=== PATIENT | female | born 1950 | race Caucasian/White ===

== ENCOUNTER 2018-08-20 06:49 | Inpatient (IN) ==
[2018-08-20 08:22] LABS: BASO# 0.01 X1000 (0.0-0.2); BASO% 0.2 % (0.0-0.8); EOS# 0.02 X1000 (0.0-0.7); EOS% 0.3 % (0.0-10.0); HEMATOCRIT 36.6 % (37.0-47.0); HEMOGLOBIN 11.9 g/dL (12.0-16.0); IMM GRAN# 0.02 X1000 (0.0-0.04); IMM GRAN% 0.3 % (0.0-0.5); LYMPH# 0.83 X1000 (1.2-3.4); LYMPH% 13.9 % (20.5-51.1); MCH 31.3 PG (27-31); MCHC 32.5 g/dL (33-37); MCV 96.3 FL (81-99); MONO# 0.64 X1000 (0.11-0.59); MONO% 10.8 % (1.7-9.3); MPV 9.6 FL (7.4-10.4); NEUT# 4.43 X1000 (1.4-6.5); NEUT% 74.5 % (42.2-75.2); PLT 329 X1000 (130-400); RDW 13.8 % (11.5-14.5); WBC 5.95 X1000 (4.8-10.8)
[2018-08-20 08:34] LABS: URINE SOURCE CATH
[2018-08-20 08:42] LABS: BILIRUBIN URINE NEGATIVE (NEGATIVE); BLOOD URINE TRACE (NEGATIVE); COLOR YELLOW; GLUCOSE URINE NEGATIVE (NEGATIVE); KETONE URINE NEGATIVE (NEGATIVE); LEUKOCYTES URINE NEGATIVE (NEGATIVE); NITRITE URINE NEGATIVE (NEGATIVE); PH URINE 5.5; PROTEIN URINE NEGATIVE (NEGATIVE); SP GRAVITY URINE 1.013; TURBIDITY URINE CLEAR (CLEAR); UROBILINOGEN URINE NORMAL (NORMAL)
[2018-08-20 08:43] LABS: UR EPITHELIAL CELLS <10 /HPF (<10); URINE BACTERIA NEGATIVE /HPF; URINE RBC <10 /HPF (<10); URINE WBC <10 /HPF (<10)
[2018-08-20 08:44] LABS: ALB/GLOB RATIO 1.1; ALBUMIN 3.2 g/dL (3.5-5.0); CALCIUM 8.6 mg/dL (8.8-10.2); POTASSIUM 3.8 mmol/L (3.5-5.1); TOTAL BILIRUBIN 0.27 mg/dL (0.20-1.00)
--- NOTE | 2018-08-20 10:35 | Diag Imaging Result Doc PS360 ---
EXAM: CT HEAD W/O CONTRAST 08/20/2018 HISTORY: weakness, head injury TECHNIQUE: This exam was performed using automated exposure control, adjustment of mA or kV according to patient size, and/or use of iterative reconstruction technique. COMMENT: There is no evidence of mass effect, bleed, or abnormal extra-axial fluid collection. The visualized paranasal sinuses are clear. The calvarium is intact. IMPRESSION: No evidence of acute intracranial disease. Electronically signed by Brandyn Reis 08/20/2018 10:33 AM
[2018-08-20] MEDS ORDERED: SOLU-MEDROL IV ONE (11:05)
--- NOTE | 2018-08-20 12:48 | HISTORY AND PHYSICAL ---
CHIEF COMPLAINT: Inability to walk, acute flare of rheumatoid arthritis. HISTORY OF PRESENT ILLNESS: Ms. Dela Cruz is a 58-year-old woman who lives alone. She has a long history of severe crippling rheumatoid arthritis and is followed by Dr. Oliver. She was treated with nonsteroidal anti-inflammatory agents and methotrexate and low-dose prednisone. For the past 2 weeks or so, she has been barely able to get up out of bed; and her son has been having to come by twice a day to feed her breakfast and dinner. He is sometimes able to get her up to a bedside commode. Home health was added in the past 2 weeks to assist her in mobility at home, but they have found her living in her recliner with urine-soaked clothes and yesterday noted a Stage 2 decubitus in her presacral area. She admits that she has been unable to get out of bed and walk to the bathroom or to her bedroom for several weeks. She has had increased pain and stiffness in multiple joints, particularly the wrists, elbows and ankles. She has a history of Type 2 diabetes mellitus; but over the last 5-10 years has lost over 60 pounds, and her most recent hemoglobin A1C was 4.9%. Her metformin at that time was reduced to 500 mg once daily. PAST MEDICAL HISTORY: In addition to the above she has a history of hypertension, psoriasis and pernicious anemia. PAST SURGICAL HISTORY: Remarkable for knee arthroscopy in 1994 and a previous cholecystectomy. SOCIAL HISTORY: She is from her and lives alone. They have one son who is 25 years of age. She has never used tobacco or alcohol. FAMILY HISTORY: Her father had rheumatoid arthritis. HEALTH MAINTENANCE: She had pneumococcal vaccination in 2015 and flu shot this past April. HOME MEDICATIONS: 1. B12 2000 mcg daily. 2. [place] 10 1 three times a day p.r.n. joint pain. 3. Vitamin D3 2000 Units daily. 4. Ziac 2.5/6.25 1 daily for hypertension. 5. Diclofenac potassium 1 twice a day p.r.n. arthritis. 6. Famotidine 20 mg daily for GERD. 7. Folic acid 1 mg daily. 8. Lisinopril 10 mg twice a day for hypertension. 9. Metformin 500 mg daily after supper. 10.Methotrexate 8 tablets once weekly. 11.Prednisone 5 mg q a.m. 12.Sertraline 25 mg daily. 13.Temazepam 15 mg q bedtime p.r.n. sleep. 14.Tramadol/acetaminophen 2 tablets t.i.d. p.r.n. pain. REVIEW OF SYSTEMS: GENERAL: She complains of generalized weakness and fatigue. She is unsure why she cannot walk. It is not solely due to pain but her right leg seems weak and gives out on her. HEENT: Vision and hearing are adequate without recent changes. RESPIRATORY: No cough, sputum production or chronic lung disease. CARDIOVASCULAR: No angina or ischemic heart disease. No history of congestive heart failure or valvular heart disease. No palpitations, PND or edema. GI: Her appetite has been fair, and she denies abdominal pain. She has unusual diet of mainly snacks and chips. She denies constipation, diarrhea, melena or bright red blood per rectum. : No dysuria. She does have nocturia x 2-3. MUSCULOSKELETAL: See HPI. NEUROLOGIC: She recalls hitting her head pretty firmly with the car door 3 to 4 weeks ago but did not lose consciousness nor seek medical attention. Her difficulty walking seemed to begin shortly after this injury. She has used a cane for quite some time but recently got a 4-wheel walker but has been unable to use it much over the past several weeks. ENDOCRINE: Long-standing diabetes which is much improved after weight loss. She has no history of thyroid disease. She does have a history of diabetic neuropathy with some numbness in her lower legs. PHYSICAL EXAMINATION: VITAL SIGNS: Unremarkable. See nurses' notes. GENERAL APPEARANCE: An alert and talkative women who is age-appropriate and conversational. HEENT: PERRL. EOMI. Oropharynx is benign. NECK: Supple with no adenopathy, JVD, thyromegaly or bruits. LUNGS: Clear to auscultation anteriorly without crackles or wheezes. CARDIOVASCULAR: Regular rate and rhythm. No murmurs. ABDOMEN: Obese, soft and nontender. No guarding or rigidity. There is an old healed right upper quadrant excision, suprapubic section scar. MUSCULOSKELETAL: She has numerous chronic rheumatoid deformities of her wrists and MCPs. She has multiple rheumatoid nodules on the extensor surfaces of both forearms and elbows. There is a swan- neck deformity of the right ring finger. There is no significant erythema although there is synovial swelling palpable on the dorsal aspect of both wrists and her MCPs. NEUROLOGIC: Cranial nerve examination is unremarkable. I do not appreciate any focal weakness. Her sensory exam is remarkable only for minimal decreased sensation in her toes. SKIN: There is a 1 x 1 cm shallow ulcer over the coccyx area with mild erythema. There is some maceration of the presacral skin as well. DATE BASE: Sed rate is pending. ASSESSMENT: 1. Acute flare of rheumatoid arthritis with inability to walk. 2. New sacral Stage 2 decubitus ulcer, present on admission. 3. History of Type 2 diabetes mellitus. I suspect she will be controlled with diet alone now that she has lost weight. 4. Pernicious anemia, on oral replacement. 5. Recent head injury with subsequent reduced level of function. I do not see any clinical evidence for a subdural hematoma but will obtain a CT of the brain without contrast because of the temporal association. TREATMENT PLAN: Will admit for aggressive physical therapy and mobilization. Will try to return her functional status to her baseline. She will likely require subacute rehab. Will also request Dr. Oliver to consult as he has recommended changes in her rheumatologic medications. Apparently, he talked to her several months ago about Actemra infusions periodically. I have requested enterostomal therapist to evaluate her decubitus and recommend appropriate care. cc: Jude Segura MD
[2018-08-20] MEDS: VALIUM PO PRN (13:44)
[2018-08-20] MEDS: NORCO-10 PO PRN ×2 (13:45→21:34)
[2018-08-20] MEDS: ULTRACET 37.5MG/325MG PO SCH ×2 (13:45→21:37)
[2018-08-20] MEDS: HEPARIN SUBQ SCH ×2 (13:51→21:33)
[2018-08-20] MEDS ORDERED: SOLU-MEDROL ONE (13:56)
[2018-08-20] MEDS ORDERED: NORCO-10 PO SCH (14:00)
--- NOTE | 2018-08-20 14:15 | Diag Imaging Result Doc PS360 ---
EXAM: CHEST-2 VIEWS 08/20/2018 HISTORY: NHP TECHNIQUE: PA and lateral chest COMMENT: There is elevation of the right hemidiaphragm. There are no previous studies available for comparison. There is atelectasis versus fibrosis in both lung bases. IMPRESSION: Bibasilar atelectasis. Electronically signed by Brandyn Reis 08/20/2018 2:13 PM
[2018-08-20] MEDS: PEPCID PO SCH (21:33)
[2018-08-20] MEDS: PRINIVIL PO SCH (21:33)
[2018-08-20] MEDS: AMBIEN PO PRN ×2 (21:33→23:48)
[2018-08-21] MEDS: NORCO-10 PO PRN ×3 (05:30→17:46)
[2018-08-21] MEDS: HEPARIN SUBQ SCH ×2 (09:01→21:11)
[2018-08-21] MEDS: ULTRACET 37.5MG/325MG PO SCH ×3 (09:01→21:10)
[2018-08-21] MEDS: FOLIC ACID PO SCH (09:01)
[2018-08-21] MEDS: ZIAC 2.5/6.25 MG PO SCH (09:01)
[2018-08-21] MEDS: PRINIVIL PO SCH ×2 (09:01→21:10)
[2018-08-21] MEDS: VITAMIN D PO SCH (09:01)
[2018-08-21] MEDS ORDERED: SOLU-MEDROL IV ONE (10:53)
[2018-08-21] MEDS: NEURONTIN PO SCH ×2 (14:05→17:46)
[2018-08-21] MEDS: PEPCID PO SCH (21:11)
[2018-08-22] MEDS: AMBIEN PO PRN (00:17)
[2018-08-22] MEDS: NORCO-10 PO PRN ×3 (03:48→20:58)
[2018-08-22] MEDS ORDERED: METHOTREXATE PO SCH ×4 (08:00→12:00)
[2018-08-22] MEDS ORDERED: TUBERSOL ID ONE (08:58)
[2018-08-22] MEDS: FOLIC ACID PO SCH (09:00)
[2018-08-22] MEDS: ZIAC 2.5/6.25 MG PO SCH (09:00)
[2018-08-22] MEDS: PRINIVIL PO SCH ×2 (09:00→20:52)
[2018-08-22] MEDS: ULTRACET 37.5MG/325MG PO SCH ×3 (09:00→20:54)
[2018-08-22] MEDS: VITAMIN D PO SCH (09:00)
[2018-08-22] MEDS: NEURONTIN PO SCH ×3 (09:00→17:14)
[2018-08-22] MEDS: HEPARIN SUBQ SCH ×2 (09:00→20:53)
[2018-08-22] MEDS ORDERED: [UNRECOGNIZED DRUG - OTHER] ID ONE (09:00)
[2018-08-22] MEDS: PREDNISONE PO SCH (11:19)
[2018-08-22] MEDS: VALIUM PO PRN (14:05)
[2018-08-22] MEDS: PEPCID PO SCH (20:52)
[2018-08-23] MEDS: AMBIEN PO PRN (00:12)
[2018-08-23] MEDS: NORCO-10 PO PRN ×3 (03:45→21:53)
--- NOTE | 2018-08-23 08:05 | EKG Report ---
Test Performed on : 08/21/2018 08:36:47 AM Test Reason : diabetes, weakness Blood Pressure : / mmHG Vent. Rate : 074 BPM Atrial Rate : 074 BPM P-R Int : 146 ms QRS Dur : 080 ms QT Int : 352 ms P-R-T Axes : 054 050 056 degrees QTc Int : 390 ms Sinus rhythm. with occasional premature ventricular complexes. Otherwise normal ECG No previous ECGs available Unconfirmed Result
--- NOTE | 2018-08-23 09:15 | Diag Imaging Result Doc PS360 ---
SHOULDER-RIGHT - 08/23/2018 INDICATION: shoulder pain TECHNIQUE: Two views COMPARISON: None FINDINGS: There appears to be erosion of the glenoid process. Positioning of the humeral head is indeterminate on these two views. Acromioclavicular joint appears normally preserved. IMPRESSION: Apparent erosion of the glenoid process. Cannot exclude shoulder dislocation. Electronically signed by Jayden Baldwin 08/23/2018 9:13 AM
[2018-08-23] MEDS: FOLIC ACID PO SCH (09:19)
[2018-08-23] MEDS: NEURONTIN PO SCH ×3 (09:19→15:59)
[2018-08-23] MEDS: ULTRACET 37.5MG/325MG PO SCH ×4 (09:19→20:29)
[2018-08-23] MEDS: HEPARIN SUBQ SCH ×2 (09:19→20:28)
[2018-08-23] MEDS: PREDNISONE PO SCH (09:20)
[2018-08-23] MEDS: ZIAC 2.5/6.25 MG PO SCH (09:20)
[2018-08-23] MEDS: VITAMIN D PO SCH (09:20)
[2018-08-23] MEDS: PRINIVIL PO SCH ×2 (09:20→20:29)
[2018-08-23] MEDS: PEPCID PO SCH (20:28)
[2018-08-24] MEDS: NORCO-10 PO PRN (05:25)
[2018-08-24 07:11] VITALS: BP 116/48
--- NOTE | 2018-08-24 11:40 | DISCHARGE SUMMARY ---
ADMISSION DATE: 08/20/2018 DISCHARGE DATE: 08/24/2018 FINAL DIAGNOSIS: 1. Acute flare of rheumatoid arthritis. 2. Severe mobility deficit secondary to number 1. 3. Stage II decubitus ulcer present on admission due to number 2. 4. History of type 2 diabetes mellitus. 5. Essential hypertension. PRESENT ILLNESS: Mrs. Dela Cruz is a 68-year-old woman with severe longstanding and crippling rheumatoid arthritis, who lives alone. She is also followed by her music coordinator, Dr. Oliver. She was brought to the emergency room by ambulance on the morning of admission after at home had diffuse joint pains and stiffness and weakness. She was noted to have a stage II presacral decubitus and her recliner had become saturated with urine. Her son works during the day but had been coming by to feed her breakfast and supper daily. She had apparently not been able to get out of her recliner for 2 weeks. PHYSICAL EXAMINATION: General: Revealed an alert, talkative woman, who is age appropriate, and conversational and surprisingly cheerful. Lungs: Clear anteriorly without crackles or wheezes. Cardiovascular exam: Regular rate and rhythm, no murmurs. Abdomen: Minimally obese, soft, and nontender, without guarding or rigidity. Musculoskeletal: Numerous chronic rheumatoid deformities were noted of both wrists and the MCP joints of both hands. She has multiple rheumatoid nodules on the extensor surfaces of both forearms and elbows. I did not notice any significant erythema but she does have synovial swelling palpable on the dorsal aspect of both wrists and also in her MCP joints. Neurologic: Exam was unremarkable without focal weakness. Skin exam: There was a 1.5 x 1.5 cm shallow ulcer over the coccyx area with mild erythema, it is approximately 1 mm deep but not completely through the dermis. DATABASE: Her hemoglobin was 11.9, hematocrit 36.6, MCV was 96, white blood count and platelet count were normal. Chemistry profile: Normal electrolytes, BUN 27, creatinine 1.0, glucose 122, calcium 8.6, albumin 3.2. Urinalysis was unremarkable. Sedimentation rate was 22 mm for first hour. HOSPITAL COURSE: So, she was admitted for decubitus care and mobilization with physical therapy. Dr. Oliver was consulted and agreed that she had a significant flare and he recommended to continuing her methotrexate and boosting her steroid dose. After discharge, he plans to begin a new biologic agent interleukin-6 inhibitor, Actemra, I think is the name. With physical therapy, she progressed to easily sitting on the edge of bed and was able to transfer to a chair with assistance some. She complained of right shoulder pain and x-rays showed some erosions but no fracture. PPD and control were placed and both were negative at 48 hours. I expect she will require a QuantiFERON blood test prior to beginning her biologic therapy. She is discharged to rehab. She did seem occasionally tearful and I added Sertraline 25 mg q.a.m. to her medicine list. OTHER DISCHARGE MEDICATIONS: Ziac 2.5 1 daily, Vitamin D3 2000 units daily, diazepam 5 mg b.i.d. p.r.n. for severe anxiety, famotidine 20 mg at bedtime, folic acid 1 mg daily, gabapentin 100 mg 3 times a day, methotrexate 2.5 mg tablets 4 with breakfast and 4 with lunch once weekly on Thursday, prednisone 20 mg q.a.m., Ultracet tablets two 3 times a day p.r.n. for severe pain, diclofenac 100 mg b.i.d., [place] 10 1 every 6 hours as needed for severe pain, Ambien 5 mg at bedtime. cc: Jude Segura MD
[2018-08-26] MEDS ORDERED: METHOTREXATE PO SCH ×2 (09:00)
== END 2018-08-24 14:58 | DRG 547 ==
LOC: SUPCPDRO → ED 06:49 → 3N 10:07
PROVIDERS: ADMIT Internal Medicine; ATTEND Internal Medicine
CPT/HCPCS: 51702; 70450; 71020; 71046; 73030; 80053; 81001; 82948; 85025; 85651; 86580; 93005; 93010; 97110; 97162; 97530; 99285; A9270; J1644; J2920; J2930; J7506; J7512; J8610; XXXXX

== ENCOUNTER 2018-12-27 13:25 | Inpatient (IN) ==
--- NOTE | 2018-12-27 13:57 | EKG Report ---
Test Performed on : 12/27/2018 1:30:00 PM Test Reason : CP Blood Pressure : / mmHG Vent. Rate : 114 BPM Atrial Rate : 114 BPM P-R Int : 126 ms QRS Dur : 072 ms QT Int : 322 ms P-R-T Axes : 020 023 011 degrees QTc Int : 443 ms Sinus tachycardia. Otherwise normal ECG When compared with ECG of 21-AUG-2018 08:36, premature ventricular complexes. are no longer present Vent. rate has increased BY 40 BPM Nonspecific T wave abnormality now evident in Inferior leads Unconfirmed Result
[2018-12-27] MEDS ORDERED: NITROGLYCERIN TOP ONE (14:56)
--- NOTE | 2018-12-27 15:06 | PROVIDER DOCUMENTATION ---
HPI-General Adult - General Chief Complaint: Shortness of Breath Stated Complaint: chest pain since yesterday Time Seen by Provider: 12/27/18 14:42 Source: patient Allergies/Adverse Reactions: Patient Allergies Allergy/AdvReac Type Severity Reaction Status Date / Time Iodinated Contrast- Oral and Allergy ANAPHYLAXIS Verified 08/20/18 06:58 IV Dye [IV Dye] sulfamethoxazole AdvReac RASH Verified 01/26/15 19:45 [From Bactrim] trimethoprim [From Bactrim] AdvReac RASH Verified 01/26/15 19:45 Home Medications: Home Medication List Medication Instructions Recorded Confirmed Last Taken Type Bisoprolol/Hctz [Ziac 2.5/6.25 mg] 1 tab PO QAM 01/26/15 12/27/18 01/26/15 History Cholecalciferol (Vitamin D3) 1 tab PO DAILY 08/11/18 12/27/18 Unknown History [Vitamin D3] Cyanocobalamin (Vitamin B-12) 1 tab PO DAILY 08/11/18 12/27/18 Unknown History [Vitamin B12] Diazepam [Valium] 5 mg PO BID PRN 08/11/18 12/27/18 Unknown History Famotidine 20 mg PO QPM 08/11/18 12/27/18 Unknown History Folic Acid 1 tab PO DAILY 08/11/18 12/27/18 Unknown History Multivitamin [Multivitamins] 1 tab PO DAILY 08/11/18 12/27/18 Unknown History Tramadol HCl/Acetaminophen 2 tab PO TID 08/11/18 12/27/18 Unknown History [Tramadol-Acetaminophn 37.5-325] Gabapentin 100 mg PO TID 08/20/18 12/27/18 Unknown History Diclofenac Sodium [Diclofenac 1 tab PO BID #0 08/24/18 12/27/18 Unknown Rx Sodium ER] Hydrocodone/APAP 10 mg/325 mg 1 ea PO Q6H PRN PRN tab 08/24/18 12/27/18 Unknown Rx [[place]-10] Methotrexate 10 mg PO Oneal@0800 tab 08/24/18 12/27/18 Unknown Rx Methotrexate 10 mg PO Oneal@1200 tab 08/24/18 12/27/18 Unknown Rx Prednisone 20 mg PO DAILY tab 08/24/18 12/27/18 Unknown Rx Sertraline [Zoloft] 25 mg PO DAILY #30 tab 08/24/18 12/27/18 Unknown Rx Zolpidem [Ambien] 5 mg PO HS PRN PRN tab 08/24/18 12/27/18 Unknown Rx - History of Present Illness -Gen Adult Nature of Presenting Problems: Pt. is 68 yof that presents with c/o SOB and CP. Pt. reports symptoms began this morning and woke her from a sleep. Pt. reports no Hx of cardiac disease or respiratory problems. Pt. does have RA. Pt. reports several days worth of lower extremity edema that isn't usually there. Location of Pain/Injury: reports: chest. denies: none, head, face, mouth, neck, upper extremity, hand(s), abdomen, back, pelvis, genitalia, lower extremity, feet, upper body, lower body, generalized, other Pain Radiation: reports: no radiation. denies: arm(s), back, buttocks, chest, epigastric, feet, groin, jaw, flank (L), legs (lower), LLQ, LUQ, neck, periumbilical, flank (R), RLQ, RUQ, shoulder(s), scapula, scrotal, sternal notch, suprapubic, legs (upper), urethral, vaginal, other Quality of Pain: reports: pressure. denies: burning, indigestion, throbbing, tightness Severity: reports: moderate. denies: mild, severe Onset/Duration: reports: abrupt, this morning Timing: reports: still present, constant. denies: improving, changing over time, getting worse Context/Activities at Onset: reports: sleep. denies: none, light activity, moderate activity, vigorous activity, recent emotional stress, recent physical stress, recent trauma history, possible bad food, cold exposure, eating, out of country travel, rest, sexual activity, other Modifying Factors: improves with: nothing Associated Symptoms: reports: chest pain, shortness of breath. denies: denies symptoms, anxiety, arm pain, back/neck pain, constipation, cough, diaphoresis, diarrhea, dizziness, EENT symptoms, fatigue, fever/chills, genitourinary prob lems, headaches, heartburn, joint pain, loss of appetite, malaise, muscle aches, sinus congestion/drainage, nausea, rash, seizure, sensory/motor loss, pain with inspiration, swelling/mass in abdomen, syncope, vomiting, weakness, trouble walking, other Similar Symptoms Previously?: No Recently seen or treated by another doctor?: No Review of Systems - Adult - REVIEW OF SYSTEMS - ADULT Constitutional: reports: no symptoms reported Eyes: reports: no symptoms reported Ears, Nose, Mouth & Throat: reports: no symptoms reported Cardiovascular: reports: see HPI, chest pain. denies: irregular heart rate, palpitations, syncope Respiratory: reports: see HPI, shortness of breath. denies: chronic cough, pleurisy, wheezing Gastrointestinal: reports: no symptoms reported Genitourinary: reports: no symptoms reported Musculoskeletal: reports: no symptoms reported Integumentary: reports: no symptoms reported Neurological: reports: no symptoms reported Psychiatric: reports: no symptoms reported Past History - Adult - PAST MEDICAL HISTORY-ADULT Review of Records: reports: Old Records Reviewed, Nursing Assessment Review, Medications Reviewed, Social history reviewed & non-contributory. Major Childhood Illnesses: reports: denies history Cardiovascular: reports: HTN Musculoskeletal: reports: arthritis Endocrine/Immune: reports: anemia, Diabetes - IMMUNIZATION STATUS Childhood Immunizations: See Nurse Assessment Flu Vaccine: See Nurse Assessment - FAMILY HISTORY Family History: reviewed, not pertinent - SOCIAL HISTORY Smoking: non-smoker Physical Exam-General - PHYSICAL EXAM-ADULT Initial Vital Signs Reviewed: Yes - CONSTITUTIONAL General Appearance: alert, mild distress. negative: anxious, slow to respond, obtunded, combative - EYES Eyes: PERRL/EOMI, pink conjunctivae - HEAD, EARS, NOSE, MOUTH & THROAT HENMT: normocephalic/atraumatic, moist mucous membranes - NECK Neck: non-tender, full range of motion, supple, normal inspection - RESPIRATORY Respiratory: decreased breath sounds (Right lower). negative: rales, rhonchi, stridor - CARDIOVASCULAR Cardiovascular: regular rate, rhythm, tachycardia. negative: extra beats, friction rub, irregularly irregular - GASTROINTESTINAL (ABDOMEN) Abdominal Exam: normal bowel sounds, non tender, soft - LYMPHATIC Lymphatic: no adenopathy. negative: axilla node tender, cervical node tenderness - MUSCULOSKELETAL Back Exam: normal inspection. negative: muscle spasm, swelling, vertebral tenderness Extremity: pedal edema (1+ pitting). negative: deformity, erythema, inflammation Peripheral Pulses: radial (R): 2+, radial (L): 2+ - SKIN Integumentary: pallor. negative: blanching, erythema, tenderness - NEUROLOGIC Neurologic: grossly normal, no motor/sensory deficits - PSYCHIATRIC Psych/Mental Status: normal mood/affect, normal thought content, normal thought process, oriented x 3. negative: anxious, paranoid, tearful Progress - PLAN OF CARE/RESULTS Progress/Plan/Lab Results: Vital Signs - 8 hr 12/27/18 14:17 Temperature 98.9 F Pulse Rate 107 H Respiratory Rate 18 Blood Pressure 131/74 O2 Sat by Pulse Oximetry 97 Orders Category Date Time Status Saline Loc NOW Care 12/27/18 14:53 Active CHEST-PORTABLE [RAD] Stat Exams 12/27/18 14:55 Ordered CBC WITH ELECTRONIC DIFF [HEME] Stat Lab 12/27/18 14:53 Uncollected CK PROFILE [SP CHEM] Stat Lab 12/27/18 14:54 Uncollected COMPREHENSIVE METABOLIC PANEL [CHEM] Stat Lab 12/27/18 14:54 Uncollected PRO B-NATRIURETIC PEPTIDE Stat Lab 12/27/18 14:15 Received PROTIME WITH INR [COAG] Stat Lab 12/27/18 14:54 Uncollected PTT [COAG] Stat Lab 12/27/18 14:54 Uncollected TROPONIN T Stat Lab 12/27/18 14:54 Uncollected TYPE & SCREEN [BBK] Stat Lab 12/27/18 14:55 Uncollected URINALYSIS W/POSS RFLX CULT [URINALYSIS] Stat Lab 12/27/18 14:54 Uncollected Nitroglycerin Med 12/27/18 14:56 Discontinued 0.5 inch TOP NOW ONE EKG [EKG] Stat Ther 12/27/18 13:32 Draft Result Diagrams: 12/27/18 14:15 12/27/18 14:15 - EKG 1 Time of EKG reading by physician:: 13:34 EKG Read and Signed by:: Bib Ledezma EKG Interpretation (*Must complete 3 of following elements*): Abnormal Rate: 114 Rhythm: Sinus tachycardia 2 Time of EKG reading by physician:: 17:09 EKG Read and Signed by:: Bib Ledezma EKG Interpretation (*Must complete 3 of following elements*): Normal Rate: 96 Rhythm: NSR - XRAY 1 XRAY Study: Chest ([facility] - [address], [address], [place] [address] [facility] - [address] [place] [address] Department of Imaging Patient: JUDITH FLETCHER Date: 12/27/18MR#: [id number] : 1950DM [id number] Age/Sex: 68/FRoom/Bed: Loc: ED Ordering Physician: Yasmani Norris Family Physician: Jude Segura MD Reason for Procedure: SOB ___ Signed EXAM: CHEST-PORTABLE 12/27/2018 HISTORY: SOB TECHNIQUE: AP portable at 1503 COMMENT: There are platelike opacities in both lung bases which were also present on 08/20/2018 and may be due to fibrosis. The inspiration is generally suboptimal. Considering the degree of inspiration and technique there has been no significant change. IMPRESSION: Fibrotic scars. No evidence of acute disease. Electronically signed by Brandyn Reis 12/27/2018 3:09 PM 12/27/18 1506 Interpreting Physician: Brandyn Reis MD Dictated Date/Time: 12/27/18 1506 cc: Yasmani Norris; Jude Segura MD) XRAY Interpretation: See note - CONSULTS/PCP/HOSPITALIST Notification #1 *Consult/PCP/Hospitalist*: Dr. Le Time Discussed: 18:29 Reason/Comments: Admission Consult Disposition: Will see in ED, Admit Departure - Departure Date of Disposition Decision: 12/27/18 Time of Disposition Decision: 18:29 DIAGNOSIS: Chest pain Qualifiers: Chest pain type: unspecified Qualified Code(s): R07.9 - Chest pain, unspecified Dyspnea Qualifiers: Dyspnea type: unspecified Qualified Code(s): R06.00 - Dyspnea, unspecified Anemia Qualifiers: Anemia type: unspecified type Qualified Code(s): D64.9 - Anemia, unspecified Disposition: ADMITTED INPATIENT 09 Certified Medical Emergency: Emergent Condition: Stable Referrals and Follow-Ups: Jude Segura MD [Primary Care Provider] - - Critical Care Note This patient required my direct & personal management of CC.: No Attestation - Physician/ GASTON Attestation Patient care was provided by Advanced Practice Provider:: Yes Advanced Practice Provider:: Yasmani Norris Advanced Practice Provider documentation review:: The Mid-level provider documentation, treatment plan and medical decision making was reviewed by the physician who agrees with all treatment and medical decision making by the MLP. The physician spent face to face time with patient:: No Advanced Practice Provider documentation review:: Supervising physician onsite and consulted in the evaluation and care of this patient. The physician did not have a face to face encounter with the patient.
--- NOTE | 2018-12-27 15:12 | Diag Imaging Result Doc PS360 ---
EXAM: CHEST-PORTABLE 12/27/2018 HISTORY: SOB TECHNIQUE: AP portable at 1503 COMMENT: There are platelike opacities in both lung bases which were also present on 08/20/2018 and may be due to fibrosis. The inspiration is generally suboptimal. Considering the degree of inspiration and technique there has been no significant change. IMPRESSION: Fibrotic scars. No evidence of acute disease. Electronically signed by Brandyn Reis 12/27/2018 3:09 PM
[2018-12-27 15:44] LABS: BASO# 0.01 X1000 (0.0-0.2); BASO% 0.1 % (0.0-0.8); EOS# 0.12 X1000 (0.0-0.7); EOS% 1.5 % (0.0-10.0); HEMATOCRIT 36.9 % (37.0-47.0); HEMOGLOBIN 11.4 g/dL (12.0-16.0); IMM GRAN# 0.03 X1000 (0.0-0.04); IMM GRAN% 0.4 % (0.0-0.5); LYMPH# 0.78 X1000 (1.2-3.4); LYMPH% 9.7 % (20.5-51.1); MCH 29.9 PG (27-31); MCHC 30.9 g/dL (33-37); MCV 96.9 FL (81-99); MONO# 1.27 X1000 (0.11-0.59); MONO% 15.8 % (1.7-9.3); MPV 9.8 FL (7.4-10.4); NEUT# 5.84 X1000 (1.4-6.5); NEUT% 72.5 % (42.2-75.2); PLT 227 X1000 (130-400); RBC 3.81 XMIL (4.2-5.4); RDW 17.4 % (11.5-14.5); WBC 8.05 X1000 (4.8-10.8)
[2018-12-27 15:48] LABS: INR 1.09; PROTIME 14.2 Seconds (11.0-16.0)
[2018-12-27 15:49] LABS: PTT 30.4 Seconds (22.3-41.8)
[2018-12-27 16:06] LABS: AGAP 10; ALB/GLOB RATIO 1.3; ALBUMIN 3.1 g/dL (3.5-5.0); ALKALINE PHOSPHATASE 55 U/L (32-104); BUN 15 mg/dL (8-22); CALCIUM 8.3 mg/dL (8.8-10.2); CHLORIDE 99 mmol/L (98-107); CK PROFILE 31 U/L (24-173); COSMO 279; CREATININE 0.8 mg/dL (0.5-0.9); ESTIMATED GFR > 60; GLUCOSE 107 mg/dL (70-104); GOT 18 U/L (10-30); GPT 12 U/L (10-36); POTASSIUM 4.1 mmol/L (3.5-5.1); SODIUM 139 mmol/L (136-145); TCO2 30 mmol/L (25-35); TOTAL BILIRUBIN 0.59 mg/dL (0.20-1.00); TOTAL PROTEIN 5.4 g/dL (6.3-8.3)
[2018-12-27 17:00] LABS: URINE SOURCE CATH
[2018-12-27 17:09] LABS: BILIRUBIN URINE NEGATIVE (NEGATIVE); BLOOD URINE MODERATE (NEGATIVE); COLOR YELLOW; GLUCOSE URINE NEGATIVE (NEGATIVE); KETONE URINE NEGATIVE (NEGATIVE); LEUKOCYTES URINE SMALL (NEGATIVE); NITRITE URINE NEGATIVE (NEGATIVE); PH URINE 5.5; PROTEIN URINE 50 mg/dL (NEGATIVE); SP GRAVITY URINE 1.024; TURBIDITY URINE CLEAR (CLEAR); UROBILINOGEN URINE 4 mg/dL (NORMAL)
[2018-12-27 17:10] LABS: UR EPITHELIAL CELLS <10 /HPF (<10); URINE BACTERIA NEGATIVE /HPF; URINE RBC 20-40 /HPF (<10)
[2018-12-27 17:40] LABS: BE 9.1 mmoll (-3.0-3.0); BLOOD TYPE ARTERIAL; PO2(98.6) 73 mmHg (60-100); SAMPLE BLOOD; SAO2 96.8 % (95.0-100.0); THB 10.6 g/dL (11.5-17.4); pH(98.6) 7.44 (7.35-7.45)
[2018-12-27 17:41] LABS: ALLEN TEST YES; METHB 0.9 % (0.0-1.5); MODALITY CANNULA; O2(CT) 14.2 mL/dL (15.0-23.0); O2HB 94.5 % (95.0-99.0); PCO2(98.6) 51 mmHg (35-45)
--- NOTE | 2018-12-27 17:50 | EKG Report ---
Test Performed on : 12/27/2018 5:09:25 PM Test Reason : CP Blood Pressure : / mmHG Vent. Rate : 096 BPM Atrial Rate : 096 BPM P-R Int : 132 ms QRS Dur : 076 ms QT Int : 354 ms P-R-T Axes : 036 036 030 degrees QTc Int : 447 ms Normal sinus rhythm. Normal ECG When compared with ECG of 27-DEC-2018 13:30, (Unconfirmed) No significant change was found Unconfirmed Result
[2018-12-27] MEDS ORDERED: MORPHINE IV ONE (18:21)
[2018-12-27] MEDS ORDERED: ZOFRAN IV ONE (18:21)
--- NOTE | 2018-12-27 20:13 | HISTORY AND PHYSICAL ---
HISTORY OF PRESENT ILLNESS: This is a patient of Dr. Jude Segura. A 68-year-old, with: 1. A long history of severe crippling rheumatoid arthritis for which she is on methotrexate under Dr. Oliver's direction, treated with nonsteroidal anti-inflammatories and low-dose prednisone. 2. Diabetes mellitus type 2. 3. Iron deficiency anemia. Her iron deficiency has received [address] Serna last week in fact. 4. They noted some phosphate deficiency and gave her some tablets for phosphate. 5. She is not sure she has hypertension. She has been on lisinopril and hydrochlorothiazide. She presents stating that her feet and legs have swollen a little more over the last week, but today developed pressure type chest pain with a pleuritic component. It hurts to take a deep breath. Does not radiate to her jaw or to her arm. She does have chest wall pain, but this is different and was not reproducible on exam. She denies fever or chills. Denies cough or sputum production. Just feels short of breath. The chest pain has been fairly constant all day long. SURGICAL HISTORY: She has had a and she has had her left total knee arthroplasty I believe in 1999. ALLERGIES: Sulfa drugs, Bactrim causes a rash. FAMILY HISTORY: Mother had congestive heart failure. Father with Alzheimer's and coronary artery disease. I think he had a myocardial infarction. SOCIAL HISTORY: Lives with her son. She is pretty much wheelchair and bed bound and needs assistance to get up. Negative for alcohol or tobacco. REVIEW OF SYSTEMS: In general, no weight gain or loss. No fever or chills.HEENT: No change in visual or hearing acuity. Neck: No neck pain. No complaints of swelling or adenopathy. Respiratory: No increased work of breathing or dyspnea until today. She does feel a little bit short of breath. A little bit of dyspnea. Does not feel like she can get a deep breath and has some pain with deep breath in her anterior chest. Cardiovascular: No other complaints of palpitation or history of arrhythmias. GI and : She has had a little bit loose stool recently. She was given some phosphate tablets and she was told to take a little bit of Imodium for that, but no blood in the stool. Urinary: No dysuria or gross hematuria. Musculoskeletal/Neurologic: Just mainly in her hands and feet from rheumatoid arthritis. She has ulnar deviation in her hands and her hands and feet hurt all the time. PHYSICAL EXAMINATION: GENERAL: In the emergency room awake and alert, and pleasant. Her daughter was there with her. She is alert and oriented x3. VITAL SIGNS: Temp 98.9 degrees, pulse 107, respirations 18, blood pressure 131/74. Pupils are equal round. LUNGS: Clear in all lung dawson. CARDIOVASCULAR: Regular rhythm and rate without murmur or S3. Weight 150 pounds. Height 5 feet. ABDOMEN: Soft, nondistended. NECK: Supple without any thyromegaly. She has 1+ pitting edema from ankle to mid collins, symmetrical. Her carotid, radial, femoral and popliteal pulses are 2+ and symmetrical. SKIN: Without any rashes. HEENT: Oral and nasal mucosa unremarkable. Conjunctiva pink. Sclerae clear. LABORATORY DATA: White count 8050, hematocrit 36, platelet count 227,000. Sodium 139, potassium 4.1, chloride 99, BUN 15, creatinine 0.8. AST 18, ALT was 12. Troponin of 0.044. Her proBNP was 1995. Albumin 3.1. Protime 14.2, PTT was 30.4. Urine unremarkable. Her EKG showed normal sinus rhythm. I did not see any suspicious ST segments, completely normal and normal sinus rhythm, normal axis. Blood gases: PH is 7.44, pCO2 is 51, PO2 is 73, and she is on 28% FiO2. Chest x-ray: Fibrotic scars, no evidence of acute disease. No infiltrate and these were also present back on 08/20/2018. ASSESSMENT AND PLAN: 1. Chest pain, squeezing in nature with underlying rheumatoid arthritis. Enzymes right now are negative. EKG completely unremarkable. We will check serial cardiac enzymes, CK and troponin and serial EKGs. I think it would be worthwhile to get an echocardiogram and look at her left ventricular function and I will leave it up to Dr. Segura whether he wants to get Cardiology involved. She may need to have a myocardial perfusion test to rule out coronary ischemia. 2. Rheumatoid arthritis. Presently, she is on her methotrexate. I think she missed her last dose. We will hold that while she is in the hospital and try and get her back on her routine with her methotrexate. I think she takes 8 tablets once a week. 3. History of iron deficiency and she recently got an iron infusion, 2 of them by her report. Hematocrit is 36, hemoglobin 11, with an MCV of 96. 4. Pedal edema. I suspect this is venous insufficiency. May give her a dose of Lasix to see if it will help a little bit. I would like to look and see what her left ventricular function is and whether she has any diastolic dysfunction. 5. She is being treated for B12 and vitamin D deficiency and we will continue those. 6. I think history of depression and anxiety. She is on Zoloft. I will continue that. She is taking [place] at home for pain. She also takes tramadol. She takes 2 tablets 3 times a day and she takes [place] 10 mg q.6 hours, although, will have a little more often than [place] while she is in the hospital with this chest pain. cc: Jr Le MD
[2018-12-27] MEDS ORDERED: AMBIEN PO PRN (21:40)
[2018-12-27] MEDS ORDERED: LASIX IV ONE (21:40)
[2018-12-27] MEDS ORDERED: ZOFRAN IV PRN (21:40)
[2018-12-27] MEDS ORDERED: VALIUM PO PRN (21:40)
[2018-12-27] MEDS ORDERED: TYLENOL PO PRN (21:40)
[2018-12-27] MEDS: NORCO-10 PO PRN (22:10)
[2018-12-27] MEDS: PEPCID PO SCH (22:10)
[2018-12-27] MEDS: VOLTAREN PO SCH (22:20)
--- NOTE | 2018-12-28 00:27 | EKG Report ---
Test Performed on : 12/27/2018 10:51:34 PM Test Reason : chest pain Blood Pressure : / mmHG Vent. Rate : 116 BPM Atrial Rate : 116 BPM P-R Int : 132 ms QRS Dur : 078 ms QT Int : 326 ms P-R-T Axes : 049 040 032 degrees QTc Int : 453 ms Sinus tachycardia. Otherwise normal ECG When compared with ECG of 27-DEC-2018 17:09, (Unconfirmed) No significant change was found Confirmed by Dom Plaza MD ([id number]) on 01/02/2019 9:27:07 PM
[2018-12-28 05:28] LABS: BASO# 0.03 X1000 (0.0-0.2); BASO% 0.4 % (0.0-0.8); EOS# 0.17 X1000 (0.0-0.7); EOS% 2.4 % (0.0-10.0); HEMATOCRIT 38.1 % (37.0-47.0); HEMOGLOBIN 11.7 g/dL (12.0-16.0); LYMPH# 1.16 X1000 (1.2-3.4); LYMPH% 16.1 % (20.5-51.1); MCH 30.2 PG (27-31); MCHC 30.7 g/dL (33-37); MCV 98.2 FL (81-99); MONO# 1.26 X1000 (0.11-0.59); MONO% 17.5 % (1.7-9.3); MPV 9.1 FL (7.4-10.4); NEUT# 4.57 X1000 (1.4-6.5); NEUT% 63.6 % (42.2-75.2); PLT 217 X1000 (130-400); RBC 3.88 XMIL (4.2-5.4); RDW 17.3 % (11.5-14.5); WBC 7.19 X1000 (4.8-10.8)
[2018-12-28 05:56] LABS: AGAP 10; BUN 13 mg/dL (8-22); CALCIUM 8.4 mg/dL (8.8-10.2); CHLORIDE 96 mmol/L (98-107); CHOLESTEROL 145 mg/dL (0-200); COSMO 277; CREATININE 0.9 mg/dL (0.5-0.9); ESTIMATED GFR > 60; GLUCOSE 89 mg/dL (70-104); HDL 55 mg/dL (45-65); LDL 73 mg/dL; PHOSPHORUS 2.2 mg/dL (2.7-4.5); POTASSIUM 3.6 mmol/L (3.5-5.1); SODIUM 139 mmol/L (136-145); TCO2 33 mmol/L (25-35); TRIGLYCERIDES 86 mg/dL (35-135); VLDL 17 mg/dL
[2018-12-28] MEDS: NORCO-10 PO PRN ×3 (06:35→22:31)
[2018-12-28 06:42] LABS: T4 7.48 ug/dL (4.60-12.00); TSH 1.22 uIUmL (0.27-4.20)
--- NOTE | 2018-12-28 09:07 | Diag Imaging Result Doc PS360 ---
EXAM: CHEST-2 VIEWS 12/28/2018 HISTORY: Chest Pain TECHNIQUE: PA and lateral chest COMMENT: There is elevation of the right hemidiaphragm and/or subpulmonic effusion on the right. There is increased pulmonary vascularity and perihilar ill-defined opacity consistent with pulmonary edema. These findings have worsened since 12/27/2018. IMPRESSION: Pulmonary edema. Worsening right pleural effusion. Electronically signed by Brandyn Reis 12/28/2018 9:04 AM
[2018-12-28] MEDS: VOLTAREN PO SCH ×2 (09:36→20:37)
[2018-12-28] MEDS: PRILOSEC PO SCH (09:37)
[2018-12-28] MEDS: NEURONTIN PO SCH ×3 (09:37→20:36)
[2018-12-28] MEDS: ULTRACET 37.5MG/325MG PO SCH ×3 (09:37→20:35)
[2018-12-28] MEDS: FOLIC ACID PO SCH (09:38)
[2018-12-28] MEDS: ZIAC 2.5/6.25 MG PO SCH (09:38)
[2018-12-28] MEDS: THERA M PLUS PO SCH (09:38)
[2018-12-28] MEDS: ZOLOFT PO SCH (09:38)
[2018-12-28] MEDS: VITAMIN B-12 PO SCH (09:38)
[2018-12-28] MEDS: PREDNISONE PO SCH (09:38)
[2018-12-28] MEDS: ASPIRIN PO SCH (09:38)
[2018-12-28] MEDS: VITAMIN D PO SCH (09:38)
--- NOTE | 2018-12-28 09:42 | PROGRESS NOTE ---
DATE: 12/28/2018 SUBJECTIVE: Ms. Dela Cruz said she feels better. She had a good night, did not have as much pain. Her troponin stayed about 0.4. She remained afebrile. She still has some discomfort when she takes a deep breath. OBJECTIVE: Temperature 98.4 degrees, pulse 80, respirations 14, blood pressure 123/57.HEENT: Pupils are equal and round. Lungs: Clear in all lung dawson. Cardiovascular: Regular rhythm and rate without murmur or S3. Abdomen: Soft. Skin: Warm and dry. DATA: Urine output 2000 mL Chest x-ray from this morning pulmonary edema, worsening right pleural effusion. ASSESSMENT AND PLAN: 1. Chest pain with pressure sensation. I will ask cardiology to evaluate, see if we need to do a myocardial perfusion scan. She does have pleural effusions and pulmonary edema. I gave her some Lasix yesterday. I will give her a little more today. We will look at her echocardiogram, look at her left ventricular function. I think we can do some work on her afterload as well. I had held 1 of her blood pressure medicines and I think I will put her back on it. She was on bisoprolol hydrochlorothiazide combination which was Ziac 2.5/ 6.25 q.a.m. and I will put her back on that. 2. Rheumatoid arthritis with chronic pain especially in her hands and feet. 3. Iron deficiency anemia. She has recently had infusion of iron. 4. Pedal edema. It is difficult to know how much of this is venous insufficiency versus diastolic dysfunction. We will look at her left ventricular function. 5. She is getting B12 and vitamin D supplements. We will continue those. 6. History of depression and anxiety. 7. She is confined to bed and wheelchair. cc: MD Jude Hua MD
[2018-12-28] MEDS ORDERED: SOLU-MEDROL IV ONE (12:19)
[2018-12-28] MEDS ORDERED: PEPCID PO ONE (12:20)
[2018-12-28] MEDS ORDERED: BENADRYL IV ONE (12:21)
--- NOTE | 2018-12-28 14:29 | CONSULTATION ---
DATE OF CONSULTATION: 12/28/2018 IMPRESSIONS: 1. Recent chest discomfort with features predominantly atypical for myocardial ischemia. 2. Severe debilitating rheumatoid arthritis. Patient is not ambulatory since June of this year. 3. Type 2 diabetes mellitus. RECOMMENDATIONS: 1. Given abnormal D-dimer and patient nonambulatory, would evaluate for possible pulmonary embolus with chest CT scan. The patient denies any history of intravenous contrast dye allergy. Nevertheless, we will go ahead and premedicate for such. 2. Follow up echocardiography. 3. Consider screening for coronary disease although given her severe debility, conservative/medical therapy would seem most appropriate. She is a poor candidate for cardiac surgery given her debility. HISTORY: This 68-year-old white female with a past history of longstanding crippling rheumatoid arthritis and type 2 diabetes mellitus was admitted for further evaluation of recent chest discomfort. She describes an extended duration of low-grade chest tightness. There is also some associated chest discomfort. Symptoms are aggravated by deep breath. She has had modest cough with very little sputum production. She is not aware of any fever. She came to the emergency room yesterday afternoon and was subsequently admitted for further workup. Her chest discomfort has pretty much faded away. She does relate some tendency for lower extremity swelling which is fairly symmetrical according to her. She relates her rheumatoid arthritis has progressed to the point that she has not been ambulatory since June of this year. PAST MEDICAL HISTORY: 1. Rheumatoid arthritis. 2. Type 2 diabetes mellitus. 3. Anemia. PAST SURGICAL HISTORY: Includes remote section and left total knee replacement. ALLERGIES: She has allergy to sulfa. There is also a listed allergy to intravenous contrast dye but she denies this. MEDICATIONS: Medications prior to admission as listed. SOCIAL HISTORY: She is . She lives at home with her son. She has home health coming by to help her on a regular basis. She has never smoked. FAMILY HISTORY: Negative for premature coronary disease. REVIEW OF SYSTEMS: Pulmonary: Noteworthy for some shortness of breath as well as atypical chest discomfort. There has been minimal cough. Gastrointestinal: Negative. Constitutional: Negative for fever. Remainder of review of systems negative/noncontributory with 14 total systems reviewed. PHYSICAL EXAMINATION: General: This is an overweight, somewhat cushingoid-appearing, older white female in no distress. Vital signs: Blood pressure 123/57, heart rate 88 and regular. HEENT: Extraocular muscles appear intact. Mucous membranes moist. Neck: Supple without jugular venous distention. There are no carotid bruits. Chest: Clear to auscultation. Cardiac Exam: Reveals a regular rate and rhythm without appreciable murmur, rub, or gallop. Abdomen: Soft. Bowel sounds are normal. Extremities: Demonstrate mild 1+ pretibial edema with some chronic venous stasis changes. Neurologic: Reveals her to be alert and fully oriented. Speech is fluent. She moves all 4 extremities equally well. Skin: Warm and dry. Psychiatric: Reveals her mood to be appropriate. Musculoskeletal: Noteworthy for advanced rheumatoid arthritis changes in both hands with significant ulnar deviation. PERTINENT DATA: Twelve lead EKG demonstrates a sinus tachycardia but is otherwise within normal limits. LABORATORY DATA: Includes a sodium 139, potassium 3.6, chloride 96, carbon dioxide 33, BUN 13, creatinine 0.9, glucose 89. Initial CPK 31 with a follow-up CPKs of 30, 34, and 60. Initial troponin 0.053 with a follow-up troponins of 0.044 and 0.040. D-dimer 3.2. cc: MD Jude Franco MD
--- NOTE | 2018-12-28 15:08 | Diag Imaging Result Doc PS360 ---
EXAM: CT ANGIOGRM PULMONARY ARTERIES INDICATION: Elevated D-dimer, bed bound, CP, SOB TECHNIQUE: This exam was performed using automated exposure control, adjustment of mA or kV according to patient size, and/or use of iterative reconstruction technique. Thin section axial images and 3-D MIPS were obtained. COMPARISON: None. FINDINGS: There is no evidence of pulmonary embolism. There is no evidence of aortic dissection or aneurysm. There is no cardiomegaly. There is no evidence of significant mediastinal lymphadenopathy. There is a small to moderate-sized right pleural effusion and right basilar atelectasis. There is groundglass opacity and interstitial thickening bilaterally suggesting pulmonary edema. There are a couple of old healed rib fractures on the right. There is no evidence of acute osseous abnormality. Limited views of the upper abdomen are essentially unremarkable. IMPRESSION: 1.Interstitial thickening and patchy groundglass opacity bilaterally suggesting pulmonary edema. 2.Small to moderate-sized right pleural effusion and right basilar atelectasis. 3.No evidence of pulmonary embolism. Electronically signed by Kirk Ortiz 12/28/2018 3:05 PM
--- NOTE | 2018-12-28 19:11 | ECHO REPORT ---
ORDER DATE: 12/27/2018 INTERPRETING PHYSICIAN: Eze Rocha MD INDICATION: Suspected congestive heart failure. Dyspnea. M-MODE MEASUREMENTS: Left ventricle end diastole: 4.1 cm. Left ventricle end systole: 2.4 cm. Posterior wall: 1.3 cm. Interventricular septum: 1.0 cm. Left atrium: 3.2 cm. Aortic diameter: 2.5 cm. SUMMARY OF 2-DIMENSIONAL IMAGIN. Left ventricular function is normal with an ejection fraction estimated at 65% to 70%. There is no wall motion abnormality noted. 2. The aortic valve is normal. Color flow mapping is unremarkable. 3. The mitral valve looks normal. Color flow mapping is unremarkable. 4. Pulsed wave Doppler of mitral inflow shows normal E/A ratio. 5. Tissue Doppler of septal and lateral mitral annulus averages 7 1/2 cm. 6. There is no diastolic dysfunction. 7. Pulmonary venous flow is normal. 8. The left atrium is not dilated. 9. Pulmonic valve looks normal. Color flow mapping unremarkable. 10.The tricuspid valve looks grossly normal. Color flow mapping unremarkable. 11.The inferior vena cava is not dilated. 12.There is no pericardial effusion, mass, and no thrombus. Clinical correlation is recommended. cc: MD Jr Montesinos MD Russell T. Barr, MD
[2018-12-28] MEDS: PEPCID PO SCH (20:37)
[2018-12-29] MEDS: NORCO-10 PO PRN ×4 (04:19→20:22)
[2018-12-29] MEDS: PRILOSEC PO SCH (06:16)
[2018-12-29] MEDS ORDERED: LASIX IV ONE (08:06)
[2018-12-29] MEDS: ULTRACET 37.5MG/325MG PO SCH ×3 (09:26→20:23)
[2018-12-29] MEDS: HEPARIN SUBQ SCH ×2 (09:26→20:20)
[2018-12-29] MEDS: ASPIRIN PO SCH (09:26)
[2018-12-29] MEDS: FOLIC ACID PO SCH (09:26)
[2018-12-29] MEDS: VITAMIN B-12 PO SCH (09:27)
[2018-12-29] MEDS: NEURONTIN PO SCH ×3 (09:27→20:25)
[2018-12-29] MEDS: THERA M PLUS PO SCH (09:27)
[2018-12-29] MEDS: ZIAC 2.5/6.25 MG PO SCH (09:27)
[2018-12-29] MEDS: VITAMIN D PO SCH (09:27)
[2018-12-29] MEDS: MACROBID PO SCH ×2 (09:27→20:24)
[2018-12-29] MEDS: PREDNISONE PO SCH (09:27)
[2018-12-29] MEDS: ZOLOFT PO SCH (09:27)
--- NOTE | 2018-12-29 16:27 | PROGRESS NOTE ---
DATE: 12/29/2018 SUBJECTIVE: Patient continues with some shortness of breath, although she is maintaining oxygen saturations on room air. Chest discomfort has improved. OBJECTIVE: Blood pressure 119/61, heart rate 71, oxygen saturation 95% on room air. Jugular venous distention appears to be mildly elevated. Auscultation of the chest reveals diminished breath sounds in the right base posteriorly. Cardiac exam was a regular rate and rhythm without appreciable murmur, rub, or gallop. Extremities demonstrate mild to moderate pretibial edema. DIAGNOSTIC STUDIES: Laboratory data includes white blood cell count 7.19, hematocrit 38.1, hemoglobin 11.7, platelet count 217,000. Sodium 139, potassium 3.6, chloride 96, carbon dioxide 33, BUN 13 creatinine 0.9, glucose 89. Initial troponin 0.053 with follow-up troponins of 0.044, 0.040, 0.042, and 0.032. Chest CT scan reports no evidence of pulmonary emboli. Some interstitial prominence is reported, suggesting pulmonary edema. There is also a small to moderate size right pleural effusion with right basilar atelectasis. Echocardiography reports normal left ventricular function with no significant valvular abnormality evident. IMPRESSION: 1. Recent dyspnea symptoms and atypical chest discomfort. Patient may have element of congestive heart failure with preserved left ventricular ejection fraction. 2. Atypical chest symptoms. No objective evidence of myocardial ischemia. 3. Severe debilitating rheumatoid arthritis. 4. Type 2 diabetes mellitus. RECOMMENDATIONS: 1. Diurese and monitor clinical response. 2. Conservative cardiovascular management overall. cc: MD Jude Franco MD
[2018-12-29] MEDS: LASIX IV SCH (18:02)
[2018-12-29] MEDS: PEPCID PO SCH (20:27)
[2018-12-30] MEDS: NORCO-10 PO PRN ×4 (04:34→20:19)
[2018-12-30] MEDS: PRILOSEC PO SCH (06:06)
[2018-12-30] MEDS: LASIX IV SCH ×2 (06:06→18:18)
[2018-12-30] MEDS: ZIAC 2.5/6.25 MG PO SCH (08:39)
[2018-12-30] MEDS: VITAMIN D PO SCH (08:39)
[2018-12-30] MEDS: MACROBID PO SCH ×2 (08:39→20:18)
[2018-12-30] MEDS: ZOLOFT PO SCH (08:40)
[2018-12-30] MEDS: FOLIC ACID PO SCH (08:40)
[2018-12-30] MEDS: HEPARIN SUBQ SCH ×2 (08:40→20:19)
[2018-12-30] MEDS: PREDNISONE PO SCH (08:40)
[2018-12-30] MEDS: THERA M PLUS PO SCH (08:40)
[2018-12-30] MEDS: VITAMIN B-12 PO SCH (08:40)
[2018-12-30] MEDS: NEURONTIN PO SCH ×3 (08:40→20:18)
[2018-12-30] MEDS: ASPIRIN PO SCH (08:40)
[2018-12-30] MEDS: ULTRACET 37.5MG/325MG PO SCH ×3 (11:23→20:17)
--- NOTE | 2018-12-30 18:41 | CARDIOLOGY PROGRESS NOTE ---
DATE: 12/30/2018 SUBJECTIVE: Patient relates shortness of breath seems to be improving. She still relates some low-grade chest heaviness. She describes symptoms rather vaguely. OBJECTIVE: Blood pressure 140/53, heart rate 72, oxygen saturation 96% on room air. Jugular venous distention appears to be mildly elevated. Chest is clear to auscultation bilaterally.Cardiac: Regular rate and rhythm without appreciable murmur or gallop. Extremities: Demonstrate mild pretibial edema. LABORATORY DATA: Not repeated today. IMPRESSION: 1. Recent dyspnea symptoms as well as atypical chest discomfort. The patient appears to have an element of congestive heart failure with preserved left ventricular ejection fraction. This seems to be improving with diuresis. 2. Atypical chest symptoms. 3. Severe debilitating rheumatoid arthritis. 4. Type 2 diabetes mellitus. RECOMMENDATIONS: 1. Continue to diurese. 2. Arrange Lexiscan sestamibi study for prognostic purposes. cc: MD Jude Franco MD
[2018-12-30] MEDS: PEPCID PO SCH (20:19)
[2018-12-31] MEDS: LASIX IV SCH (06:06)
[2018-12-31] MEDS: PRILOSEC PO SCH (06:09)
[2018-12-31] MEDS ORDERED: LEXISCAN ONE (09:03)
[2018-12-31] MEDS: ZIAC 2.5/6.25 MG PO SCH (12:13)
[2018-12-31] MEDS: NORCO-10 PO PRN (12:13)
[2018-12-31] MEDS: ASPIRIN PO SCH (12:13)
[2018-12-31] MEDS: VITAMIN D PO SCH (12:13)
[2018-12-31] MEDS: NEURONTIN PO SCH ×2 (12:14→15:14)
[2018-12-31] MEDS: THERA M PLUS PO SCH (12:14)
[2018-12-31] MEDS: PREDNISONE PO SCH (12:14)
[2018-12-31] MEDS: MACROBID PO SCH (12:14)
[2018-12-31] MEDS: ZOLOFT PO SCH (12:14)
[2018-12-31] MEDS: FOLIC ACID PO SCH (12:14)
[2018-12-31] MEDS: HEPARIN SUBQ SCH (12:14)
[2018-12-31] MEDS: VITAMIN B-12 PO SCH (12:14)
[2018-12-31] MEDS: ULTRACET 37.5MG/325MG PO SCH ×2 (12:28→15:11)
--- NOTE | 2018-12-31 13:19 | Diag Imaging Result Document ---
PROCEDURE NAME: MYOCARDIAL PERF SCAN, STR/REST - 12/31/2018 PROCEDURE: Lexiscan Cardiolite stress test. DESCRIPTION OF PROCEDURE IN DETAIL: Lexiscan was infused per standard protocol. There was no chest pain. Stress electrocardiogram was negative for ischemia. Following Lexiscan infusion, Cardiolite was injected. Total of 10.5 mCi of Cardiolite was injected for the rest phase; 33.3 mCi of Cardiolite was injected for the stress phase. Images revealed normal left ventricular cavity size. Normal myocardial perfusion. There was significant chest wall and diaphragmatic attenuation. Left ventricular ejection fraction by gated SPECT was 88%. CONCLUSIONS: 1. No chest pain. 2. Negative Lexiscan stress electrocardiogram. 3. Normal myocardial perfusion. 4. Left ventricular ejection fraction 88%. cc: MD Brian Chu MD
--- NOTE | 2018-12-31 15:33 | DISCHARGE SUMMARY ---
ADMISSION DATE: 12/27/2018 DISCHARGE DATE: 12/31/2018 FINAL DIAGNOSIS: 1. Noncardiac chest pain. 2. Severe crippling rheumatoid arthritis. 3. Type 2 diabetes mellitus, treated with diet. 4. Iron deficiency anemia. 5. Hypertension. 6. Generalized weakness and mobility deficit due to rheumatoid arthritis. 7. Stage 1 sacral decubitus. PRESENT ILLNESS: Mrs. Dela Cruz is a 68-year-old white female with long history of advanced and severe rheumatoid arthritis. She presented to the emergency room on the date of admission with a several hour history of pressure type chest pain with a pleuritic component. It did not radiate to her arm, jaw, or back. She had no cough, sputum production, but did complain of some air hunger. Admission EKG was unremarkable. PHYSICAL EXAMINATION: Revealed borderline tachycardia with rate of 107, blood pressure 131/74. Lungs were clear. Cardiac exam with regular rate and rhythm without murmurs. Abdomen soft, nondistended. LABORATORY DATA: CBC with unremarkable electrolytes. Unremarkable BUN of 15 and creatinine 0.8. Troponin 0.044. ProBNP 1995. IMAGING: Chest x-ray showed fibrotic opacities in both lung bases, unchanged from previous x-ray. HOSPITAL COURSE: She was felt to have features of atypical and typical chest pain and was of at least moderate risk due to her rheumatoid arthritis and age. It was felt important to admit her to rule out [place]. She was seen in consultation by Cardiology, Dr. Alvarez. Due to her elevated D dimer he ordered a pulmonary arteriogram, which showed no evidence of pulmonary emboli, but did find some patchy interstitial thickening and ground glass opacities, suggesting early pulmonary edema. There was also a small to moderate right pleural effusion. It was felt due to that and an elevated proBNP, was felt to have mild fluid overload and she was treated with intravenous Lasix. This improved and her shortness of breath resolved. She was noted to have increased weakness and poor mobility and she agreed that returning to rehab would be helpful for her to live at home alone. Arrangements were made to return to [facility]. Prior to discharge she underwent Lexiscan which showed normal myocardial perfusion and normal ejection fraction. Her echocardiogram done earlier also showed no wall motion abnormalities with normal left ventricular function. There were no significant valvular abnormalities. Her rheumatoid arthritis is felt to be suboptimally controlled and have encouraged her to see her public defender, Dr. Oliver, about adding to her methotrexate therapy. She has been reasonably well controlled on methotrexate and low-dose prednisone but he feels additional medication may be helpful. She was noted to have some redness over the sacrum and this is felt to be a stage 1 decubitus related to her mobility deficit. She will be seen at [facility] by their Wound Care R.N. DISCHARGE MEDICATIONS: [place] 10 one q six hours p.r.n. pain, omeprazole 20 mg daily, nitrofurantoin macrocrystals 100 mg q 12 hours for seven days, acetaminophen 650 mg q six hours as needed for pain, Ziac 2.5 one q a.m., vitamin B12 2500 mcg p.o. daily, diazepam 5 mg b.i.d. p.r.n. for anxiety, folic acid 1 mg daily, methotrexate four 2.5 mg tablets with breakfast and lunch every Thursday, total of 20 mg, multivitamin one daily, Ultracet two tablets three times a day as needed for pain, vitamin D3 2000 units once daily, famotidine 20 mg q p.m., gabapentin 100 mg three times a day, prednisone 20 mg daily, Zoloft 25 mg daily, Ambien 5 mg at bedtime p.r.n. for sleep. cc: Jude Segura MD
--- NOTE | 2018-12-31 16:11 | PROGRESS NOTE ---
DATE: 12/31/2018 SUBJECTIVE: Patient denies shortness of breath or chest discomfort on room air. OBJECTIVE: Vital Signs: Blood pressure 118/48, heart rate 72, oxygen saturation 96% on room air. There is no significant jugular venous distention. Chest: Clear to auscultation bilaterally. Cardiac: Reveals a regular rate and rhythm without appreciable murmur or gallop. Extremities: Demonstrate mild ankle edema bilaterally. DATA: Lexiscan myocardial perfusion study demonstrates normal myocardial perfusion and normal left ventricular ejection fraction. IMPRESSION: 1. Recent dyspnea symptoms and atypical chest discomfort. No evidence of myocardial ischemia. Left ventricular ejection fraction preserved. 2. Severe debilitating rheumatoid arthritis. 3. Type 2 diabetes mellitus. RECOMMENDATIONS: 1. Continue current antihypertensive regimen. 2. Further diuresis does not appear to be warranted. We will stop Lasix. 3. No further cardiovascular suggestions. The patient appears clinically stable to be discharged soon. cc: MD Jude Franco MD
[2018-12-31 17:21] VITALS: BP 127/60
== END 2018-12-31 21:50 | DRG 313 ==
LOC: ED 13:25 → 3N 20:30
PROVIDERS: ADMIT Internal Medicine; ATTEND Internal Medicine